=== PATIENT | male | born 1955 | race Caucasian/White ===

== ENCOUNTER 2016-07-09 16:55 | Emergency (ER) | payer BC, OTHER ==
--- NOTE | 2016-07-09 17:14 | CPEKG ---
Heart Rate: 64 RR Interval: 938 P-R Interval: 180 QRSD Interval: 92 QT Interval: 440 QTC Interval: 454 P Burt: 54 QRS Burt: 60 T Wave Burt: 42 EKG Severity - NORMAL ECG - EKG Impression: SINUS RHYTHM Electronically Signed By: Raleigh Guillen 09-Jul-2016 18:15:56
--- NOTE | 2016-07-09 17:30 | EDPHY ---
H & P Stated Complaint: chcest tightness/feeling tingly all over last few weeks Source: Patient - Personal History Current Tetanus/Diphtheria Vaccine: Unsure - Medical/Surgical History Hx Asthma: No Hx Chronic Respiratory Disease: No Hx Diabetes: No Hx Cardiac Disease: No Hx Renal Disease: No Hx Cirrhosis: No Hx Alcoholism: No Hx HIV/AIDS: No Hx Splenectomy or Spleen Trauma: No Other PMH: denies - Social History Smoking Status: Never smoked Time Seen by Provider: 07/09/16 17:02 HPI/ROS: This is a 61-year-old male presenting to the emergency department, patient states that he has been under a lot of stress increasing over the past few weeks. 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 States he runs 5 days a week very active no appetite changes. Over the past 2 weeks he has reported intermittent left anterior chest tightness with bilateral upper extremity numbness and tingling that comes and goes, what brought him in today was he was in the grocery store and felt foggy. Aspirin 81 mg daily, denies any headache no vision changes no nausea vomiting REVIEW OF SYSTEMS: Constitutional: No fever no chills no changes in appetite or ADLs Eyes: No blurred vision ENT: No sore throat Respiratory: No shortness of breath Cardiac: Intermittent Chest tightness Gastrointestinal: No nausea vomiting Genitourinary: No urinary discomfort Musculoskeletal: Bilateral upper extremity numbness and tingling Skin: No rash Neurological: No headache or dizziness, but reports feeling foggy Psych: Feels anxious (Zandra Noel) - Physical Exam Exam: CONSTITUTIONAL: patient appeared well nourished, non-ill appearing and normally developed. No acute distress. Vital signs as documented. HEENT: Normocephalic atraumatic PERRLA. EOMI. Oropharynx normal NECK: Supple, FROM without pain RESP: Non-labored resp effort, airway patent, CTAB CARDIAC: RRR w/o murmur, boy. Normal S1/S2 GI: Abd soft NTTP, no mass NEURO: AAOx3 CNII-XII intact ambulatory without gait disturbance EXTREMITIES: FROM without pain or difficulty. Equal bilateral piano refinisher strength Positive cms intact SKIN: Warm and dry no rash PSYCH: flat affect, calm, no distress (Zandra Noel) Constitutional: Initial Vital Signs Temperature (C) 36.4 C 07/09/16 16:57 Heart Rate 76 07/09/16 16:57 Respiratory Rate 20 07/09/16 16:57 Blood Pressure 145/95 H 07/09/16 16:57 O2 Sat (%) 98 07/09/16 16:57 O2 Delivery Mode Room Air Allergies/Adverse Reactions: No Known Allergies Allergy (Unverified 07/09/16 16:57) Home Medications: Medication Instructions Recorded Aspirin 81mg (*) 07/09/16 Diazepam [Valium 5 MG (*)] 5 mg PO PRN #5 tab 07/09/16 Medical Decision Making - Diagnostics EKG Interpretation: EKG: Complete interpretation has been separately recorded in the [email or web address] archive. Summary impression: Sinus rhythm, rate 64, no ischemic changes noted (Raleigh Guillen) Imaging: Imaging Impressions Chest X-Ray 07/09/16 17:32 Impression: Normal. ED Course/Re-evaluation: Discussed plan of care: EKG, chest x-ray, CBC, Chem 7, troponin patient with plan 1830: The patient states he is doing much better, states he needs to get home to take care of his . Discussed with patient more likely this is due to an increased stress of his environment , also talked about ways of alleviating stress. He did mention possibly getting more inhouse Healthcare for and utilizing family members. Discharge home---> stable, discussed discharge instructions with patient (Zandra Noel) Differential Diagnosis: Differential diagnosis considered but not limited to be HI, CVA and panic attack (Zandra Noel) - Data Points Laboratory Results: Laboratory Results 07/09/16 17:30 07/09/16 17:30 07/09/16 07/09/16 17:30 17:30 WBC 7.67 10^3/uL 10^3/uL (3.80-9.50) RBC 5.58 10^6/uL 10^6/uL (4.40-6.38) Hgb 16.3 g/dL g/dL (13.7-17.5) Hct 47.2 % % (40.0-51.0) MCV 84.6 fL fL (81.5-99.8) MCH 29.2 pg pg (27.9-34.1) MCHC 34.5 g/dL g/dL (32.4-36.7) RDW 13.4 % % (11.5-15.2) Plt Count 291 10^3/uL 10^3/uL (150-400) MPV 9.7 fL fL (8.7-11.7) Neut % (Auto) 57.5 % % (39.3-74.2) Lymph % (Auto) 31.4 % % (15.0-45.0) Meade % (Auto) 7.8 % % (4.5-13.0) Eos % (Auto) 1.6 % % (0.6-7.6) Baso % (Auto) 1.4 % % (0.3-1.7) Nucleat RBC Rel Count 0.0 % % (0.0-0.2) Absolute Neuts (auto) 4.41 10^3/uL 10^3/uL (1.70-6.50) Absolute Lymphs (auto) 2.41 10^3/uL 10^3/uL (1.00-3.00) Absolute Monos (auto) 0.60 10^3/uL 10^3/uL (0.30-0.80) Absolute Eos (auto) 0.12 10^3/uL 10^3/uL (0.03-0.40) Absolute Basos (auto) 0.11 10^3/uL H 10^3/uL (0.02-0.10) Absolute Nucleated RBC 0.00 10^3/uL 10^3/uL (0-0.01) Immature Gran % 0.3 % % (0.0-1.1) Immature Gran # 0.02 10^3/uL 10^3/uL (0.00-0.10) Sodium 141 mEq/L mEq/L (134-144) Potassium 3.9 mEq/L mEq/L (3.5-5.2) Chloride 105 mEq/L mEq/L (97-110) Carbon Dioxide 23 mEq/l mEq/l (22-31) Anion Gap 13 mEq/L mEq/L (8-16) BUN 24 mg/dL H mg/dL (7-23) Creatinine 1.0 mg/dL mg/dL (0.7-1.3) Estimated GFR > 60 Glucose 84 mg/dL mg/dL (70-100) Calcium 9.6 mg/dL mg/dL (8.5-10.4) Troponin I < 0.012 ng/mL ng/mL (0-0.034) Departure - Departure Disposition: Home, Routine, Self-Care Clinical Impression: Anxiety Condition: Good Instructions: Anxiety (ED) Additional Instructions: 1. Decrease stress in your environment 2. I have given you numbers for [facility] and [facility] follow up with primary care physician, they also have clinical social worker masters is available for therapy if you need 3. [facility] [phone] Referrals: NONE *PRIMARY CARE P,. [Primary Care Provider] - As per Instructions [facility],. [Clinic] - As per Instructions Prescriptions: Diazepam [Valium 5 MG (*)] 5 mg PO PRN #5 tab
[2016-07-09 17:41] LABS: % IMMATURE GRANULYOCYTES 0.3 % (0.0-1.1); ABSOLUTE IMMATURE GRANULOCYTES 0.02 10^3/uL (0.00-0.10); ADD DIFF? NO; ADD MORPH? NO; ADD SCAN? NO; ATYPICAL LYMPHOCYTE FLAG 10 (0-99); FRAGMENT RBC FLAG 0 (0-99); HEMATOCRIT 47.2 % (40.0-51.0); HEMOGLOBIN 16.3 g/dL (13.7-17.5); LEFT SHIFT FLG 0 (0-99); LIPEMIA HEMOLYSIS FLAG 90 (0-99); MEAN CELL HEMOGLOBIN 29.2 pg (27.9-34.1); MEAN CELL HEMOGLOBIN CONCENTR. 34.5 g/dL (32.4-36.7); MEAN CELL VOLUME 84.6 fL (81.5-99.8); MEAN PLATELET VOLUME 9.7 fL (8.7-11.7); PLATELET CLUMPS FLAG 10 (0-99); PLATELET COUNT 291 10^3/uL (150-400); RED BLOOD CELL COUNT 5.58 10^6/uL (4.40-6.38); RED CELL DISTRIBUTION WIDTH 13.4 % (11.5-15.2)
[2016-07-09 18:01] LABS: ANION GAP 13 mEq/L (8-16); CALCIUM 9.6 mg/dL (8.5-10.4); CARBON DIOXIDE 23 mEq/l (22-31); CHLORIDE 105 mEq/L (97-110); GLOMERULAR FILTRATION RATE > 60; GLUCOSE 84 mg/dL (70-100); POTASSIUM 3.9 mEq/L (3.5-5.2); SODIUM 141 mEq/L (134-144)
[2016-07-09 18:12] LABS: TROPONIN I < 0.012 ng/mL (0-0.034)
[2016-07-09] MEDS ORDERED: DIAZEPAM 5 MG TAB ONE (18:56)
[2016-07-09 19:01] VITALS: RESP 16; O2SAT 96
[2016-07-09 19:02] VITALS: BP 127/84; PULSE 65; TEMP 97.7
== END 2016-07-09 19:02 | disposition home or self-care (01) ==
DX: F41.9 Anxiety disorder, unspecified (principal); Z79.82 Long term (current) use of aspirin